=== PATIENT | male | born 1975 | race Caucasian/White ===

== ENCOUNTER 2020-07-09 08:40 | Outpatient (RCR) | payer BC | END 2020-07-25 | LOC: PT 08:40 | PROVIDERS: ATTEND Specialist | DX: M87.052 Idiopathic aseptic necrosis of left femur (principal) ==

== ENCOUNTER → 2021-05-29 | Day surgery (SDC) | payer BC ==
[2021-05-26 09:24] LABS: BASOPHILS # (AUTO) 0.1 (0.0-0.1); EOSINOPHILS # (AUTO) 0.2 (0.0-0.4); EOSINOPHILS % 3.2 % (0.0-6.0); HEMATOCRIT 39.9 % (38.2-49.6); LYMPHOCYTES # (AUTO) 1.7 (1.0-3.2); LYMPHOCYTES % 23.2 % (18.0-39.1); MEAN CORPUSCULAR HEMOGLOBIN 30.4 pg (28-32); MEAN CORPUSCULAR HGB CONC 35.1 g/dL (31-35); MEAN CORPUSCULAR VOLUME 86.7 fL (81-99); MONOCYTES # (AUTO) 0.5 (0.2-0.8); MONOCYTES % 7.4 % (4.4-11.3); NEUTROPHILS # (AUTO) 4.7 (2.1-6.9); NEUTROPHILS % 64.8 % (38.7-80.0); PLATELET COUNT 270 x10e3/uL (140-360); RED CELL DISTRIBUTION WIDTH 13.8 % (11.7-14.4)
[~2021-05-29] MED LIST: AMLODIPINE/BENAZ; BACTRIM DS TAB1 EACH PO; BUPIVACAINE HCL 0.5% INJ 30 ML VIAL INJ ONE; CEPHALEXIN500 MG PO; DEXAMETHASONE SOD PHOS INJ 4 MG/ML SDV ONE; ELIQUIS5 MG PO; FENTANYL CITRATE/PF 100MCG/2 ML INJ ONE; IBUPROFEN800 MG PO; KETOROLAC TROMETHAMINE 30 MG/ML VIAL ONE; LIDOCAINE 2% /EPINEPHRINE 20 ML SDV INJ ONE; LIDOCAINE HCL 2% LOCAL INJ 5 ML SDV VIAL INJ ONE; MIDAZOLAM HCL 2 MG/2 ML VIAL ONE; NEURONTIN400 MG PO; ONDANSETRON HCL INJ 2MG/ML 2ML 2 MG/ML VIAL ONE; POVIDONE IODINE 0.05% 0.05 % ML PO ONE; PROPOFOL IV EMULSION 10 MG/ML 20 ML VIAL ONE; PROTONIX20 MG PO; ROPIVACAINE 0.5% 5 MG/ML 30 ML SDV ONE; SEVOFLURANE INHAL SOLN 250 ML PEN BTL ONE; SODIUM CHLORIDE 0.9% 50ML 100 ML ONE; TYLENOL EXTRA500 MG PO
[2021-05-29 11:35] VITALS: BP 110/80
== END | disposition home or self-care (01) ==
LOC: OR 06:44
PROVIDERS: ATTEND Orthopaedic Surgery
DX: S83.232A Complex tear of medial meniscus, current injury, left knee, initial encounter (principal); S83.282A Other tear of lateral meniscus, current injury, left knee, initial encounter; D75.89 Other specified diseases of blood and blood-forming organs; M22.42 Chondromalacia patellae, left knee; M67.52 Plica syndrome, left knee; K21.9 Gastro-esophageal reflux disease without esophagitis; I10 Essential (primary) hypertension; M10.9 Gout, unspecified; N20.0 Calculus of kidney; X58.XXXA Exposure to other specified factors, initial encounter; Z88.8 Allergy status to other drugs, medicaments and biological substances; Z01.810 Encounter for preprocedural cardiovascular examination; Z01.812 Encounter for preprocedural laboratory examination; Z20.822 Contact with and (suspected) exposure to COVID-19; Z79.02 Long term (current) use of antithrombotics/antiplatelets; Z79.82 Long term (current) use of aspirin; Z79.899 Other long term (current) drug therapy; Z96.643 Presence of artificial hip joint, bilateral
CPT/HCPCS: 27599; 29880; 36415; 85025; 93005; C1713; J0690; J1100; J1885; J2001 ×2; J2250; J2405; J2704; J2795; J3010; U0002; 76000

== ENCOUNTER 2021-06-03 16:55 | Emergency (ER) | payer BC ==
[~2021-06-03] VITALS: Ht 172.7 cm; Wt 77.1 kg
[~2021-06-03 16:55] MED LIST changes: -BACTRIM DS TAB1 EACH PO; -BUPIVACAINE HCL 0.5% INJ 30 ML VIAL INJ ONE; -CEPHALEXIN500 MG PO; -DEXAMETHASONE SOD PHOS INJ 4 MG/ML SDV ONE; -ELIQUIS5 MG PO; -FENTANYL CITRATE/PF 100MCG/2 ML INJ ONE; -IBUPROFEN800 MG PO; -KETOROLAC TROMETHAMINE 30 MG/ML VIAL ONE; -LIDOCAINE 2% /EPINEPHRINE 20 ML SDV INJ ONE; -LIDOCAINE HCL 2% LOCAL INJ 5 ML SDV VIAL INJ ONE; -MIDAZOLAM HCL 2 MG/2 ML VIAL ONE; -ONDANSETRON HCL INJ 2MG/ML 2ML 2 MG/ML VIAL ONE; -POVIDONE IODINE 0.05% 0.05 % ML PO ONE; -PROPOFOL IV EMULSION 10 MG/ML 20 ML VIAL ONE; -ROPIVACAINE 0.5% 5 MG/ML 30 ML SDV ONE; -SEVOFLURANE INHAL SOLN 250 ML PEN BTL ONE; -SODIUM CHLORIDE 0.9% 50ML 100 ML ONE; -TYLENOL EXTRA500 MG PO
[2021-06-03] MEDS ORDERED: Morphine 4mg Syringe 4 MG/ML INJ IM ONE (18:00)
[2021-06-03] MEDS ORDERED: ONDANSETRON HCL INJ 2MG/ML 2ML 2 MG/ML VIAL IV STA (18:01)
[2021-06-03] MEDS ORDERED: Morphine 4mg Syringe 4 MG/ML INJ ONE (18:09)
[2021-06-03] MEDS ORDERED: ONDANSETRON HCL INJ 2MG/ML 2ML 2 MG/ML VIAL ONE (18:16)
[2021-06-03] MEDS ORDERED: APIXABAN 5 MG TABLET PO ONE (18:34)
[2021-06-03] MEDS ORDERED: ELIQUIS5 MG PO ×2 (18:42→18:43)
[2021-06-03 19:22] LABS: BASOPHILS # (AUTO) 0.1 (0.0-0.1); BASOPHILS % 1.1 % (0.0-1.0); EOSINOPHILS # (AUTO) 0.4 (0.0-0.4); EOSINOPHILS % 4.7 % (0.0-6.0); HEMATOCRIT 39.4 % (38.2-49.6); HEMOGLOBIN 13.6 g/dL (14.0-18.0); LYMPHOCYTES # (AUTO) 1.5 (1.0-3.2); LYMPHOCYTES % 18.4 % (18.0-39.1); MEAN CORPUSCULAR HEMOGLOBIN 30.4 pg (28-32); MEAN CORPUSCULAR HGB CONC 34.5 g/dL (31-35); MEAN CORPUSCULAR VOLUME 87.9 fL (81-99); MONOCYTES # (AUTO) 0.8 (0.2-0.8); MONOCYTES % 9.4 % (4.4-11.3); NEUTROPHILS # (AUTO) 5.3 (2.1-6.9); PLATELET COUNT 391 x10e3/uL (140-360); RED BLOOD COUNT 4.48 x10e6/uL (4.3-5.7); RED CELL DISTRIBUTION WIDTH 12.9 % (11.7-14.4)
[2021-06-03 19:34] LABS: INR 0.92; PROTHROMBIN TIME 13.2 seconds (11.9-14.5)
[2021-06-03 19:35] LABS: PARTIAL THROMBOPLASTIN TIME 30.3 seconds (23.8-35.5)
[2021-06-03 19:45] LABS: ALBUMIN 3.8 g/dL (3.5-5.0); ALBUMIN/GLOBULIN RATIO 0.8 (0.8-2.0); CALCIUM 10.1 mg/dL (8.4-10.2); CREATININE, SERUM 0.9 mg/dL (0.72-1.25)
[2021-06-04] MEDS ORDERED: BACTRIM DS TAB1 EACH PO (03:00)
[2021-06-04] MEDS ORDERED: TYLENOL EXTRA500 MG PO (03:00)
[2021-06-04] MEDS ORDERED: IBUPROFEN800 MG PO (03:00)
[2021-06-04] MEDS ORDERED: CEPHALEXIN500 MG PO (03:00)
== END 2021-06-03 19:33 | disposition home or self-care (01) ==
LOC: ER 17:00
DX: M79.605 Pain in left leg (principal); I82.512 Chronic embolism and thrombosis of left femoral vein
CPT/HCPCS: 36415; 80053; 85025; 85610; 85730; 99283; J2270; J2405

== ENCOUNTER 2021-06-04 02:36 | Emergency (ER) | payer BC ==
[~2021-06-04] VITALS: Ht 172.7 cm; Wt 77.1 kg
[~2021-06-04 02:36] MED LIST changes: +ELIQUIS5 MG PO
[2021-06-04] MEDS ORDERED: TYLENOL EXTRA500 MG PO (03:00)
[2021-06-04] MEDS ORDERED: CEPHALEXIN 500 MG CAP PO SCH (03:00)
[2021-06-04] MEDS ORDERED: BACTRIM DS TAB1 EACH PO (03:00)
[2021-06-04] MEDS ORDERED: TRIMETHOPRIM/SULFAMETHOXAZOLE 160-800 MG TAB PO ONE (03:00)
[2021-06-04] MEDS ORDERED: Morphine 4mg Syringe 4 MG/ML INJ IM ONE (03:00)
[2021-06-04] MEDS ORDERED: IBUPROFEN800 MG PO (03:00)
[2021-06-04] MEDS ORDERED: KETOROLAC TROMETHAMINE 60 MG/2 ML VIAL IM ONE (03:00)
[2021-06-04] MEDS ORDERED: CEPHALEXIN500 MG PO (03:00)
[2021-06-04] MEDS ORDERED: Morphine 4mg Syringe 4 MG/ML INJ ONE (03:01)
[2021-06-04] MEDS ORDERED: KETOROLAC TROMETHAMINE 30 MG/ML VIAL ONE (03:01)
== END 2021-06-04 04:00 | disposition home or self-care (01) ==
LOC: ER 02:49
DX: L03.116 Cellulitis of left lower limb (principal); I82.592 Chronic embolism and thrombosis of other specified deep vein of left lower extremity
CPT/HCPCS: 99282; J1885; J2270

== ENCOUNTER → 2021-10-30 | Day surgery (SDC) | payer BC ==
[~2021-10-30] MED LIST changes: +BACTRIM DS TAB1 EACH PO; +BUPIVACAINE 0.25% 30ML SDV ONE; +CEPHALEXIN500 MG PO; +DEXAMETHASONE SOD PHOS INJ 4 MG/ML SDV ONE; +FENTANYL CITRATE/PF 100MCG/2 ML INJ ONE; +IBUPROFEN800 MG PO; +KETOROLAC TROMETHAMINE 30 MG/ML VIAL ONE; +LIDOCAINE 1% W/EPINEPHRINE 20 ML VIAL ONE; +LIDOCAINE HCL 2% LOCAL INJ 5 ML SDV VIAL INJ ONE; +MIDAZOLAM HCL 2 MG/2 ML VIAL ONE; +ONDANSETRON HCL INJ 2MG/ML 2ML 2 MG/ML VIAL ONE; +POVIDONE IODINE 0.05% 0.05 % ML PO ONE; +PROPOFOL IV EMULSION 10 MG/ML 20 ML VIAL ONE; +ROPIVACAINE 0.5% 5 MG/ML 30 ML SDV INJ ONE; +SEVOFLURANE INHAL SOLN 250 ML PEN BTL ONE; +TYLENOL EXTRA500 MG PO
[2021-10-30 08:30] VITALS: BP 125/79
== END | disposition home or self-care (01) ==
LOC: OR 05:43
PROVIDERS: ATTEND Orthopaedic Surgery
DX: D75.89 Other specified diseases of blood and blood-forming organs (principal); S83.281A Other tear of lateral meniscus, current injury, right knee, initial encounter; M22.41 Chondromalacia patellae, right knee; M67.51 Plica syndrome, right knee; S83.231A Complex tear of medial meniscus, current injury, right knee, initial encounter; M87.051 Idiopathic aseptic necrosis of right femur; M76.01 Gluteal tendinitis, right hip; M70.61 Trochanteric bursitis, right hip; Z96.643 Presence of artificial hip joint, bilateral; I10 Essential (primary) hypertension; K21.9 Gastro-esophageal reflux disease without esophagitis; X58.XXXA Exposure to other specified factors, initial encounter; Z01.810 Encounter for preprocedural cardiovascular examination; Z01.812 Encounter for preprocedural laboratory examination; Z20.822 Contact with and (suspected) exposure to COVID-19; Z79.899 Other long term (current) drug therapy; Z86.718 Personal history of other venous thrombosis and embolism
CPT/HCPCS: 0223U; 27599; 29881; 36415; 76000; 93005; C1713; J0690; J1100; J1885; J2001; J2250; J2405; J2704; J2795; J3010